=== PATIENT | male | born 1980 | race Caucasian/White ===

== ENCOUNTER 2017-12-04 19:08 | Emergency (ER) | payer MEDICAID ==
[~2017-12-04] VITALS: Ht 167.6 cm; Wt 147.7 kg
[~2017-12-04 19:08] MED LIST: HYDR-4383 PO; HYDR50TA65 PO; INDO25CA18 PO; METH4TAB3 PO
[2017-12-04 19:12] VITALS: BP 173/108
[2017-12-04] MEDS ORDERED: DICL50TA8 PO (20:27)
[2017-12-04] MEDS ORDERED: ketorolac trometh inj. 60 MG/2 ML VIAL IM ONE (20:30)
== END 2017-12-04 21:08 | disposition home or self-care (01) ==
LOC: ER 19:09
DX: M79.671 Pain in right foot (principal); F12.10 Cannabis abuse, uncomplicated; Z88.6 Allergy status to analgesic agent; Z88.8 Allergy status to other drugs, medicaments and biological substances
CPT/HCPCS: 73630; 96372; 99284; J1885